=== PATIENT | male | born 1970 | race Caucasian/White ===

== ENCOUNTER 2017-01-28 23:46 | Emergency (ER) | payer SELFPAY ==
[2017-01-28 23:52] VITALS: RESP 18; TEMP 97.5
[2017-01-29 00:29] VITALS: BP 157/79; PULSE 57; O2SAT 98
== END 2017-01-29 00:28 | disposition home or self-care (01) | DRG 305 ==
LOC: ED 23:46
DX: I10 Essential (primary) hypertension (principal)
CPT/HCPCS: 99282; 99283

== ENCOUNTER 2017-04-14 16:49 | Emergency (ER) | payer BC, OTHER ==
[2017-04-14 17:18] VITALS: RESP 20; TEMP 98.1
[2017-04-14] MEDS ORDERED: CLONAZEPAM 0.5 MG TAB PO ONE (18:03)
[2017-04-14] MEDS ORDERED: CLONAZEPAM 0.5 MG TAB ONE (18:15)
[2017-04-14 18:42] VITALS: BP 145/53; PULSE 55; O2SAT 97
== END 2017-04-14 18:40 | disposition home or self-care (01) ==
LOC: ED 16:49
DX: F41.8 Other specified anxiety disorders (principal); F43.0 Acute stress reaction
CPT/HCPCS: 99283

== ENCOUNTER 2017-04-28 21:50 | Emergency (ER) | payer OTHER ==
[~2017-04-28 21:50] MED LIST: BENZTROPINE IM ONE
[2017-04-28 21:51] VITALS: O2SAT 97
[2017-04-28 21:55] VITALS: RESP 20
[2017-04-28] MEDS ORDERED: BENZTROPINE ONE (22:26)
[2017-04-28 22:37] VITALS: BP 163/71; PULSE 62; TEMP 98.6
== END 2017-04-28 22:47 | disposition home or self-care (01) ==
LOC: ED 21:50
DX: G24.9 Dystonia, unspecified (principal)
CPT/HCPCS: 99282 ×2; J0515

== ENCOUNTER 2017-08-19 22:03 | Emergency (ER) | payer OTHER ==
[2017-08-19 22:30] VITALS: TEMP 97.6
[2017-08-19 23:26] LABS: CALCIUM 8.6 mg/dl (8.5-10.1); GLOM FILT RATE 71 mL/min (>60); POTASSIUM 3.6 mMol/L (3.5-5.1); SODIUM 140 mMol/L (136-145)
[2017-08-20 00:11] VITALS: BP 139/64; PULSE 87; RESP 22; O2SAT 94
== END 2017-08-19 23:39 | disposition home or self-care (01) ==
LOC: ED 22:03
DX: R07.89 Other chest pain (principal)
CPT/HCPCS: 36415; 80048; 84484; 93005; 99284

== ENCOUNTER 2017-10-23 20:05 | Emergency (ER) | payer OTHER ==
[2017-10-23 20:22] VITALS: PULSE 68; RESP 20; TEMP 96.7; O2SAT 97
[2017-10-23] MEDS ORDERED: BENZTROPINE IM PRN (20:23)
[2017-10-23] MEDS ORDERED: BENZTROPINE ONE (20:29)
[2017-10-23 20:34] VITALS: BP 149/81
== END 2017-10-23 20:42 | disposition home or self-care (01) ==
LOC: ED 20:05
DX: G25.71 Drug induced akathisia (principal); T43.595A Adverse effect of other antipsychotics and neuroleptics, initial encounter; G24.09 Other drug induced dystonia
CPT/HCPCS: 99282 ×2; J0515; 96372